=== PATIENT | male | born 1945 | race Caucasian/White ===

== ENCOUNTER 2021-11-20 08:06 | Emergency (ER) | payer MEDICARE, MEDICAID ==
[2021-11-20] MEDS ORDERED: Ketorolac 30 MG/ML SDV IM ONE (08:43)
[2021-11-20] MEDS ORDERED: rOPINIRole 0.5 MG Tab PO STA (11:38)
== END 2021-11-20 13:13 | disposition home or self-care (01) ==
LOC: JP.ED 08:06
DX: G25.81 Restless legs syndrome (principal); I10 Essential (primary) hypertension; K21.9 Gastro-esophageal reflux disease without esophagitis; Z79.899 Other long term (current) drug therapy
CPT/HCPCS: 36415; 80053; 81001; 82550; 83605; 84443; 84484; 84550; 85025; 85379; 93971-26-LT; 93971-LT; 96372; 99283; 99284-25; A9270-GY; J1885

== ENCOUNTER 2021-11-21 10:25 | Emergency (ER) | payer MEDICARE, MEDICAID ==
[2021-11-21] MEDS ORDERED: fentaNYL 100 MCG/2 ML SDV IM ONE (11:06)
[2021-11-21] MEDS ORDERED: LORazepam 2 MG/ML SDV IM ONE (11:55)
[2021-11-21] MEDS ORDERED: Bupivacaine 0.25% 10 ML SDV ONE (14:39)
[2021-11-21] MEDS ORDERED: methylPREDNISolone Acetate 80 MG/ML SDV ONE (14:39)
== END 2021-11-21 15:28 | disposition home or self-care (01) ==
LOC: JP.ED 10:25
DX: M48.061 Spinal stenosis, lumbar region without neurogenic claudication (principal); I10 Essential (primary) hypertension; K21.9 Gastro-esophageal reflux disease without esophagitis; Z79.899 Other long term (current) drug therapy
CPT/HCPCS: 72131; 72131-26; 76000; 96372; 99282; 99284-25; J1040; J2060; J3010; J3490

== ENCOUNTER 2021-11-25 06:56 | Observation (INO) | payer MEDICARE, MEDICAID ==
[2021-11-25] MEDS ORDERED: Baclofen 10 MG Tab PO ONE (07:43)
[2021-11-25 10:26] LABS: CORONAVIRUS COVID-19 NAA NEGATIVE (NEGATIVE)
[2021-11-25] MEDS ORDERED: fentaNYL 100 MCG/2 ML SDV IVPUSH ONE (13:05)
[2021-11-25] MEDS ORDERED: Ibuprofen 600 MG Tab PO PRN (13:42)
[2021-11-25] MEDS ORDERED: LORazepam 2 MG/ML SDV IVPUSH PRN (13:42)
[2021-11-25] MEDS ORDERED: Magnesium Hydroxide 400 MG/5 ML Susp 30 ML Cup PO PRN (13:42)
[2021-11-25] MEDS ORDERED: Ondansetron 4 MG Tab.DIS PO PRN (13:42)
[2021-11-25] MEDS ORDERED: Ondansetron 4 MG/2 ML SDV IV PRN (13:42)
[2021-11-25] MEDS ORDERED: Dexamethasone 4 MG/ML SDV IVPUSH ONE (13:55)
[2021-11-25] MEDS: HYDROmorphone 1 MG/ML Syringe IVPUSH PRN ×2 (13:58→17:11)
[2021-11-25] MEDS: Sodium Chloride 0.9% 1,000 ML IV SCH ×2 (14:32→23:50)
[2021-11-25] MEDS: Baclofen 10 MG Tab PO SCH ×2 (14:35→21:04)
[2021-11-25] MEDS: Acetaminophen 325 MG Tab PO PRN (14:41)
[2021-11-25] MEDS: oxyCODONE 5 MG Tab PO PRN (19:40)
[2021-11-25] MEDS ORDERED: rOPINIRole 1 MG Tab PO SCH (21:00)
[2021-11-25] MEDS ORDERED: Non-Formulary Medication 1 Each (Gabapentin [Neurontin] 300 MG Cap) PO SCH (21:00)
[2021-11-25] MEDS ORDERED: Non-Formulary Medication 1 Each (Ropinirole [Requip] 1 MG Tablet) PO SCH (21:00)
[2021-11-25] MEDS: Gabapentin 300 MG Cap PO SCH (21:04)
[2021-11-25] MEDS: Dexamethasone 4 MG/ML SDV IVPUSH SCH (21:04)
[2021-11-26] MEDS ORDERED: Pantoprazole 40 MG Tab.CR PO SCH (07:30)
[2021-11-26] MEDS: oxyCODONE 5 MG Tab PO PRN (07:36)
[2021-11-26] MEDS: Acetaminophen 325 MG Tab PO PRN (07:36)
[2021-11-26] MEDS ORDERED: Non-Formulary Medication 1 Each (Lisinopril [Lisinopril] 10 MG Tablet) PO SCH (09:00)
[2021-11-26] MEDS ORDERED: Non-Formulary Medication 1 Each (Omeprazole [Omeprazole] 20 MG Cap.Cr) PO SCH (09:00)
[2021-11-26] MEDS ORDERED: Lisinopril 20 MG Tab PO SCH (09:00)
[2021-11-26] MEDS: Baclofen 10 MG Tab PO SCH (10:07)
[2021-11-26] MEDS: Gabapentin 300 MG Cap PO SCH (10:07)
[2021-11-26] MEDS: Sodium Chloride 0.9% 1,000 ML IV SCH (10:10)
[2021-11-26] MEDS: Dexamethasone 4 MG/ML SDV IVPUSH SCH (10:11)
== END 2021-11-26 11:31 ==
LOC: JP.ED 06:56 → JP.MS 11:56
PROVIDERS: ADMIT Internal Medicine; ATTEND Internal Medicine
DX: M48.061 Spinal stenosis, lumbar region without neurogenic claudication (principal); M62.479 Contracture of muscle, unspecified ankle and foot; M62.838 Other muscle spasm; M54.16 Radiculopathy, lumbar region; I10 Essential (primary) hypertension; K21.9 Gastro-esophageal reflux disease without esophagitis; Z79.899 Other long term (current) drug therapy; Z20.822 Contact with and (suspected) exposure to COVID-19; Z85.46 Personal history of malignant neoplasm of prostate
CPT/HCPCS: 0241U; 36415; 70450; 72125; 80048; 80053; 82550; 82607; 82746; 83735; 85651; 86140; 96374; 96375; 96376; 99284; 99285-25; A9270-GY; G0378; J1100; J1170; J3010; J7030

== ENCOUNTER 2022-03-10 18:48 | Emergency (ER) | payer MEDICARE, MEDICAID ==
[2022-03-10 19:34] LABS: ESTIMATED GFR 92 mL/min (>60)
[2022-03-10] MEDS ORDERED: cefTRIAXone 1 GM in Sodium Chloride 0.9% 50 ML IV ONE (20:06)
== END 2022-03-10 21:35 ==
LOC: JP.ED 18:48
DX: N39.0 Urinary tract infection, site not specified (principal); Z93.59 Other cystostomy status; Z88.7 Allergy status to serum and vaccine; Z79.899 Other long term (current) drug therapy
CPT/HCPCS: 36415; 80053; 81001; 83605; 85025; 87086; 87088; 87186; 96365; 99285; J0696; 99282

== ENCOUNTER 2022-03-25 16:38 | Emergency (ER) | payer MEDICARE, MEDICAID ==
[2022-03-25] MEDS ORDERED: cefTRIAXone 1 GM, Lidocaine 1% 2.1 ML IM ONE ×2 (18:17)
== END 2022-03-25 19:28 | disposition home or self-care (01) ==
LOC: JP.ED 16:38
DX: N39.0 Urinary tract infection, site not specified (principal); C79.9 Secondary malignant neoplasm of unspecified site; E78.00 Pure hypercholesterolemia, unspecified; I10 Essential (primary) hypertension; K21.9 Gastro-esophageal reflux disease without esophagitis; Z88.7 Allergy status to serum and vaccine; Z79.899 Other long term (current) drug therapy; Z87.891 Personal history of nicotine dependence; Z93.59 Other cystostomy status; Z85.46 Personal history of malignant neoplasm of prostate; Z20.822 Contact with and (suspected) exposure to COVID-19
CPT/HCPCS: 36415; 70450; 71046; 80048; 81001; 84145; 85025; 86140; 87086; 96372; 99284; J0696; U0002; 87088

== ENCOUNTER 2022-04-06 18:48 | Emergency (ER) | payer MEDICARE, MEDICAID ==
[2022-04-06] MEDS ORDERED: Sodium Chloride 0.9% 1,000 ML IV SCH (19:45)
[2022-04-06] MEDS ORDERED: Sodium Chloride 0.9% 50 ML IV SCH (20:00)
[2022-04-06] MEDS ORDERED: Iopamidol 755 Mg/ML 100 ML Bottle IV SCH (20:00)
[2022-04-06 20:23] LABS: ESTIMATED GFR 89 mL/min (>60); TROPONIN I HIGH SENSITIVITY 24.6 pg/mL (<=60.3)
== END 2022-04-07 01:15 ==
LOC: JP.ED 18:48
DX: R56.1 Post traumatic seizures (principal); I10 Essential (primary) hypertension; Z88.7 Allergy status to serum and vaccine; Z79.899 Other long term (current) drug therapy; Z20.822 Contact with and (suspected) exposure to COVID-19
CPT/HCPCS: 36415; 70450; 70496; 70498; 80053; 81001; 82140; 83605; 84145; 84484; 85025; 86140; 93005; 99285; J3490; Q9967; U0002; 82565; J3370; J7050

== ENCOUNTER 2022-07-04 12:46 | Inpatient (IN) | payer MEDICARE, MEDICAID ==
[2022-07-04] MEDS ORDERED: Magnesium Hydroxide 400 MG/5 ML Susp 30 ML Cup PO PRN (18:14)
[2022-07-04] MEDS ORDERED: Ondansetron 4 MG/2 ML SDV IV PRN (18:14)
[2022-07-04] MEDS ORDERED: Ondansetron 4 MG Tab.DIS PO PRN (18:14)
[2022-07-04] MEDS ORDERED: Sodium Chloride 0.9% 1,000 ML IV SCH (18:14)
[2022-07-04] MEDS ORDERED: Acetaminophen 325 MG Tab PO PRN (18:14)
[2022-07-04] MEDS: Meropenem 1 GM in Sodium Chloride 0.9% 100 ML IV SCH (19:20)
[2022-07-04] MEDS: Carvedilol 3.125 MG Tab PO SCH (20:37)
[2022-07-04] MEDS: rOPINIRole 0.5 MG Tab PO SCH (20:37)
[2022-07-04] MEDS: Melatonin 3 MG Tab PO SCH (20:37)
[2022-07-04] MEDS: Baclofen 10 MG Tab PO SCH (20:37)
[2022-07-04] MEDS: ClonazePAM 1 MG Tab PO SCH (20:38)
[2022-07-04] MEDS: Magnesium Oxide 400 MG Tab PO SCH (20:46)
[2022-07-04] MEDS ORDERED: LACOSAMIDE 100 MG PO SCH (21:00)
[2022-07-05] MEDS: Meropenem 1 GM in Sodium Chloride 0.9% 100 ML IV SCH ×3 (01:53→17:30)
[2022-07-05] MEDS: Potassium Chloride 20 MEQ Tab.ER PO SCH (08:43)
[2022-07-05] MEDS: Citalopram 20 MG Tab PO SCH (08:43)
[2022-07-05] MEDS: Baclofen 10 MG Tab PO SCH ×3 (08:43→20:40)
[2022-07-05] MEDS: Pantoprazole 40 MG Tab.CR PO SCH (08:43)
[2022-07-05] MEDS: Calcium Carbonate 500 MG Tab.Chew PO SCH (08:44)
[2022-07-05] MEDS: rOPINIRole 0.5 MG Tab PO SCH ×2 (08:44→20:41)
[2022-07-05] MEDS: predniSONE 20 MG Tab PO SCH (08:44)
[2022-07-05] MEDS: Lisinopril 20 MG Tab PO SCH (08:44)
[2022-07-05] MEDS: Famotidine 20 MG Tab PO SCH (08:44)
[2022-07-05] MEDS: Carvedilol 3.125 MG Tab PO SCH ×2 (08:45→20:41)
[2022-07-05] MEDS: ClonazePAM 1 MG Tab PO SCH ×3 (08:46→20:46)
[2022-07-05] MEDS: Calcium Carbonate/Vitamin D3 1500 MG-400 Units Tab PO SCH (08:46)
[2022-07-05] MEDS: Melatonin 3 MG Tab PO SCH (20:40)
[2022-07-05] MEDS: Magnesium Oxide 400 MG Tab PO SCH (20:41)
[2022-07-06] MEDS: Meropenem 1 GM in Sodium Chloride 0.9% 100 ML IV SCH ×3 (02:44→18:03)
[2022-07-06] MEDS: Baclofen 10 MG Tab PO SCH ×3 (08:07→20:47)
[2022-07-06] MEDS: Lisinopril 20 MG Tab PO SCH (08:07)
[2022-07-06] MEDS: Famotidine 20 MG Tab PO SCH (08:07)
[2022-07-06] MEDS: Pantoprazole 40 MG Tab.CR PO SCH (08:07)
[2022-07-06] MEDS: Calcium Carbonate/Vitamin D3 1500 MG-400 Units Tab PO SCH (08:07)
[2022-07-06] MEDS: Citalopram 20 MG Tab PO SCH (08:07)
[2022-07-06] MEDS: Potassium Chloride 20 MEQ Tab.ER PO SCH (08:07)
[2022-07-06] MEDS: predniSONE 20 MG Tab PO SCH (08:08)
[2022-07-06] MEDS: Calcium Carbonate 500 MG Tab.Chew PO SCH (08:08)
[2022-07-06] MEDS: Carvedilol 3.125 MG Tab PO SCH ×2 (08:08→20:48)
[2022-07-06] MEDS: rOPINIRole 0.5 MG Tab PO SCH ×2 (08:09→20:48)
[2022-07-06] MEDS: ClonazePAM 1 MG Tab PO SCH ×3 (08:13→20:46)
[2022-07-06] MEDS: LACOSAMIDE 100 MG PO SCH ×2 (11:38→20:51)
[2022-07-06] MEDS: ALPHA LIPOIC ACID 600 MG PO SCH ×3 (13:28→20:59)
[2022-07-06] MEDS: Melatonin 3 MG Tab PO SCH (20:46)
[2022-07-06] MEDS: Magnesium Oxide 400 MG Tab PO SCH (20:48)
[2022-07-07] MEDS: Meropenem 1 GM in Sodium Chloride 0.9% 100 ML IV SCH ×3 (02:28→17:40)
[2022-07-07] MEDS: rOPINIRole 0.5 MG Tab PO SCH ×2 (08:48→21:16)
[2022-07-07] MEDS: Pantoprazole 40 MG Tab.CR PO SCH (08:49)
[2022-07-07] MEDS: Baclofen 10 MG Tab PO SCH ×3 (08:49→21:16)
[2022-07-07] MEDS: Carvedilol 3.125 MG Tab PO SCH ×2 (08:49→21:15)
[2022-07-07] MEDS: Famotidine 20 MG Tab PO SCH (08:49)
[2022-07-07] MEDS: Calcium Carbonate 500 MG Tab.Chew PO SCH (08:49)
[2022-07-07] MEDS: Lisinopril 20 MG Tab PO SCH (08:50)
[2022-07-07] MEDS: Citalopram 20 MG Tab PO SCH (08:50)
[2022-07-07] MEDS: predniSONE 20 MG Tab PO SCH (08:50)
[2022-07-07] MEDS: Calcium Carbonate/Vitamin D3 1500 MG-400 Units Tab PO SCH (08:50)
[2022-07-07] MEDS: Potassium Chloride 20 MEQ Tab.ER PO SCH (08:50)
[2022-07-07] MEDS: LACOSAMIDE 100 MG PO SCH ×2 (08:51→21:14)
[2022-07-07] MEDS: ALPHA LIPOIC ACID 600 MG PO SCH ×2 (08:53→21:01)
[2022-07-07] MEDS: ClonazePAM 1 MG Tab PO SCH ×3 (09:00→21:21)
[2022-07-07] MEDS ORDERED: Divalproex Sodium Delayed-Release 125 MG Cap.Sprink PO ONE (10:00)
[2022-07-07] MEDS: Divalproex Sodium Delayed-Release 125 MG Cap.Sprink PO SCH (17:17)
[2022-07-07] MEDS: Melatonin 3 MG Tab PO SCH (21:16)
[2022-07-07] MEDS: Magnesium Oxide 400 MG Tab PO SCH (21:17)
[2022-07-08] MEDS: Meropenem 1 GM in Sodium Chloride 0.9% 100 ML IV SCH ×3 (02:39→18:28)
[2022-07-08] MEDS: Divalproex Sodium Delayed-Release 125 MG Cap.Sprink PO SCH ×4 (07:27→17:16)
[2022-07-08] MEDS: Pantoprazole 40 MG Tab.CR PO SCH (07:27)
[2022-07-08] MEDS: Calcium Carbonate 500 MG Tab.Chew PO SCH (08:54)
[2022-07-08] MEDS: rOPINIRole 0.5 MG Tab PO SCH ×2 (08:54→20:37)
[2022-07-08] MEDS: Baclofen 10 MG Tab PO SCH ×3 (08:55→20:35)
[2022-07-08] MEDS: Potassium Chloride 20 MEQ Tab.ER PO SCH (08:55)
[2022-07-08] MEDS: Citalopram 20 MG Tab PO SCH (08:55)
[2022-07-08] MEDS: Carvedilol 3.125 MG Tab PO SCH ×2 (08:56→20:41)
[2022-07-08] MEDS: Famotidine 20 MG Tab PO SCH (08:57)
[2022-07-08] MEDS: predniSONE 10 MG Tab PO SCH (08:57)
[2022-07-08] MEDS: LACOSAMIDE 100 MG PO SCH ×2 (08:57→20:35)
[2022-07-08] MEDS: Lisinopril 20 MG Tab PO SCH (08:57)
[2022-07-08] MEDS: Calcium Carbonate/Vitamin D3 1500 MG-400 Units Tab PO SCH (08:57)
[2022-07-08] MEDS: ALPHA LIPOIC ACID 600 MG PO SCH ×2 (08:58→20:38)
[2022-07-08] MEDS ORDERED: predniSONE 20 MG Tab PO SCH (09:00)
[2022-07-08] MEDS: ClonazePAM 1 MG Tab PO SCH ×2 (09:07→14:14)
[2022-07-08] MEDS: Potassium Chloride 20 MEQ Tab.ER PO ONE ×2 (16:58→17:15)
[2022-07-08] MEDS: Magnesium Oxide 400 MG Tab PO SCH (20:36)
[2022-07-08] MEDS: Melatonin 3 MG Tab PO SCH (20:36)
[2022-07-08] MEDS ORDERED: Bisacodyl 10 MG Supp RECTAL PRN (21:37)
[2022-07-09] MEDS: ClonazePAM 1 MG Tab PO SCH ×4 (01:21→21:46)
[2022-07-09] MEDS: Meropenem 1 GM in Sodium Chloride 0.9% 100 ML IV SCH ×3 (02:30→17:33)
[2022-07-09] MEDS: Pantoprazole 40 MG Tab.CR PO SCH (08:01)
[2022-07-09] MEDS: Divalproex Sodium Delayed-Release 125 MG Cap.Sprink PO SCH ×2 (08:02→17:43)
[2022-07-09] MEDS: Calcium Carbonate 500 MG Tab.Chew PO SCH (08:03)
[2022-07-09] MEDS: Calcium Carbonate/Vitamin D3 1500 MG-400 Units Tab PO SCH (08:03)
[2022-07-09] MEDS: Citalopram 20 MG Tab PO SCH (08:04)
[2022-07-09] MEDS: Carvedilol 3.125 MG Tab PO SCH ×2 (08:04→21:47)
[2022-07-09] MEDS: Baclofen 10 MG Tab PO SCH ×3 (08:06→21:46)
[2022-07-09] MEDS: Potassium Chloride 20 MEQ Tab.ER PO SCH (08:06)
[2022-07-09] MEDS: Famotidine 20 MG Tab PO SCH (08:06)
[2022-07-09] MEDS: LACOSAMIDE 100 MG PO SCH ×2 (08:07→21:47)
[2022-07-09] MEDS: Lisinopril 20 MG Tab PO SCH (08:07)
[2022-07-09] MEDS: predniSONE 10 MG Tab PO SCH (08:07)
[2022-07-09] MEDS: rOPINIRole 0.5 MG Tab PO SCH ×2 (08:08→21:47)
[2022-07-09] MEDS: ALPHA LIPOIC ACID 600 MG PO SCH ×2 (08:19→21:41)
[2022-07-09 13:23] LABS: ESTIMATED GFR 78 mL/min (>60)
[2022-07-09] MEDS ORDERED: Sodium Chloride 0.9% 10 ML Syringe FLUSH PRN (14:29)
[2022-07-09] MEDS: Iopamidol 612 MG/ML 100 ML Bottle IV PRN (15:11)
[2022-07-09] MEDS: Melatonin 3 MG Tab PO SCH (21:46)
[2022-07-10] MEDS: Magnesium Oxide 400 MG Tab PO SCH ×2 (01:31→22:37)
[2022-07-10] MEDS: Meropenem 1 GM in Sodium Chloride 0.9% 100 ML IV SCH ×2 (01:31→09:40)
[2022-07-10] MEDS: LACOSAMIDE 100 MG PO SCH ×2 (08:14→22:38)
[2022-07-10] MEDS: Pantoprazole 40 MG Tab.CR PO SCH (08:14)
[2022-07-10] MEDS: ClonazePAM 1 MG Tab PO SCH ×3 (08:14→22:37)
[2022-07-10] MEDS: ALPHA LIPOIC ACID 600 MG PO SCH ×2 (08:17→22:44)
[2022-07-10] MEDS: Famotidine 20 MG Tab PO SCH (08:28)
[2022-07-10] MEDS: Calcium Carbonate 500 MG Tab.Chew PO SCH (08:29)
[2022-07-10] MEDS: predniSONE 10 MG Tab PO SCH (08:29)
[2022-07-10] MEDS: Citalopram 20 MG Tab PO SCH (08:29)
[2022-07-10] MEDS: Lisinopril 20 MG Tab PO SCH (08:30)
[2022-07-10] MEDS: Potassium Chloride 20 MEQ Tab.ER PO SCH (08:31)
[2022-07-10] MEDS: Baclofen 10 MG Tab PO SCH ×3 (08:31→22:37)
[2022-07-10] MEDS: Divalproex Sodium Delayed-Release 125 MG Cap.Sprink PO SCH (08:31)
[2022-07-10] MEDS: Calcium Carbonate/Vitamin D3 1500 MG-400 Units Tab PO SCH (08:32)
[2022-07-10] MEDS: rOPINIRole 0.5 MG Tab PO SCH ×2 (08:34→22:38)
[2022-07-10] MEDS: Carvedilol 3.125 MG Tab PO SCH ×2 (08:34→22:36)
[2022-07-10] MEDS ORDERED: Sodium Chloride 0.9% 75 ML IV SCH (08:45)
[2022-07-10] MEDS ORDERED: Iopamidol 612 MG/ML 100 ML Bottle IV SCH (08:45)
[2022-07-10] MEDS: Sodium Chloride 0.9% 10 ML Syringe FLUSH ONE ×2 (09:39→10:27)
[2022-07-10] MEDS: Iopamidol 612 MG/ML 100 ML Bottle IV PRN (10:27)
[2022-07-10] MEDS ORDERED: Sodium Chloride 0.9% 1,000 ML IV SCH (22:00)
[2022-07-10] MEDS: Melatonin 3 MG Tab PO SCH (22:37)
[2022-07-11] MEDS ORDERED: predniSONE 10 MG Tab PO SCH (09:00)
[2022-07-11] MEDS: ClonazePAM 1 MG Tab PO SCH ×3 (09:03→13:38)
[2022-07-11] MEDS: Calcium Carbonate/Vitamin D3 1500 MG-400 Units Tab PO SCH ×2 (09:04→09:22)
[2022-07-11] MEDS: LACOSAMIDE 100 MG PO SCH ×2 (09:04→09:23)
[2022-07-11] MEDS: Baclofen 10 MG Tab PO SCH ×3 (09:04→13:38)
[2022-07-11] MEDS: Pantoprazole 40 MG Tab.CR PO SCH ×2 (09:05→09:22)
[2022-07-11] MEDS: ALPHA LIPOIC ACID 600 MG PO SCH ×2 (09:05→09:22)
[2022-07-11] MEDS: Potassium Chloride 20 MEQ Tab.ER PO SCH ×2 (09:06→09:23)
[2022-07-11] MEDS: Citalopram 20 MG Tab PO SCH ×2 (09:06→09:22)
[2022-07-11] MEDS: rOPINIRole 0.5 MG Tab PO SCH ×2 (09:07→09:24)
[2022-07-11] MEDS: Famotidine 20 MG Tab PO SCH ×2 (09:07→09:23)
[2022-07-11] MEDS: Carvedilol 3.125 MG Tab PO SCH ×2 (09:08→09:22)
[2022-07-11] MEDS: Calcium Carbonate 500 MG Tab.Chew PO SCH ×2 (09:09→09:24)
[2022-07-11] MEDS: Lisinopril 20 MG Tab PO SCH ×2 (09:09→09:23)
[2022-07-11] MEDS: predniSONE 20 MG Tab PO SCH ×2 (09:09→09:23)
== END 2022-07-11 14:14 | DRG 699 ==
LOC: JP.ED 12:46 → JP.MS 17:13
PROVIDERS: ADMIT Internal Medicine; ATTEND Hospitalist
DX: T83.510A Infection and inflammatory reaction due to cystostomy catheter, initial encounter (principal); G25.82 Stiff-man syndrome; R53.1 Weakness; N39.0 Urinary tract infection, site not specified; Z93.6 Other artificial openings of urinary tract status; E78.00 Pure hypercholesterolemia, unspecified; I10 Essential (primary) hypertension; K21.9 Gastro-esophageal reflux disease without esophagitis; R33.9 Retention of urine, unspecified; M19.90 Unspecified osteoarthritis, unspecified site; G43.909 Migraine, unspecified, not intractable, without status migrainosus; L89.329 Pressure ulcer of left buttock, unspecified stage; Z20.822 Contact with and (suspected) exposure to COVID-19; L89.319 Pressure ulcer of right buttock, unspecified stage; Z96.619 Presence of unspecified artificial shoulder joint; Z79.899 Other long term (current) drug therapy; Z79.52 Long term (current) use of systemic steroids; Z88.7 Allergy status to serum and vaccine; Z85.46 Personal history of malignant neoplasm of prostate; B96.5 Pseudomonas (aeruginosa) (mallei) (pseudomallei) as the cause of diseases classified elsewhere
CPT/HCPCS: 36415; 70470; 70470-26; 70491; 70491-26; 80048; 80053; 81001; 83735; 84132; 84443; 85025; 85027; 86140; 97110-GP; 97140-GP; 97161-GP; 99285; A9270-GY; J2185; J3490; J7030; J7512; Q9967; U0002

== ENCOUNTER 2022-08-01 13:48 | Emergency (ER) | payer MEDICARE, MEDICAID | END 2022-08-01 16:44 | LOC: JP.ED 13:48 | DX: T83.510A Infection and inflammatory reaction due to cystostomy catheter, initial encounter (principal); S30.853A Superficial foreign body of scrotum and testes, initial encounter; I10 Essential (primary) hypertension; Z88.7 Allergy status to serum and vaccine; Z79.899 Other long term (current) drug therapy | CPT/HCPCS: 99283 ==

== ENCOUNTER 2022-08-02 12:15 | Emergency (ER) | payer MEDICARE, MEDICAID | END 2022-08-02 15:16 | LOC: JP.ED 12:15 | DX: M25.551 Pain in right hip (principal); N50.82 Scrotal pain; I10 Essential (primary) hypertension; Z88.7 Allergy status to serum and vaccine; Z79.899 Other long term (current) drug therapy | CPT/HCPCS: 73502-26-RT; 73502-RT; 99284 ==

== ENCOUNTER 2022-08-04 08:22 | Emergency (ER) | payer MEDICARE, MEDICAID ==
[2022-08-04] MEDS ORDERED: Sodium Chloride 0.9% 10 ML Syringe FLUSH PRN (08:30)
[2022-08-04] MEDS ORDERED: Dextrose 5%-Lactated Ringers 1,000 ML IV SCH (08:45)
== END 2022-08-04 10:05 ==
LOC: JP.ED 08:22
DX: T83.518A Infection and inflammatory reaction due to other urinary catheter, initial encounter (principal); N39.0 Urinary tract infection, site not specified; G25.82 Stiff-man syndrome; I10 Essential (primary) hypertension; K21.9 Gastro-esophageal reflux disease without esophagitis; G40.909 Epilepsy, unspecified, not intractable, without status epilepticus; Z88.7 Allergy status to serum and vaccine; Z85.46 Personal history of malignant neoplasm of prostate; Z87.891 Personal history of nicotine dependence; Z79.899 Other long term (current) drug therapy; Z20.822 Contact with and (suspected) exposure to COVID-19
CPT/HCPCS: 36415; 80048; 85025; 96360; 99283; J3490; J7121; U0002

== ENCOUNTER 2023-11-25 15:17 | Emergency (ER) | payer MEDICARE, MEDICAID ==
[2023-11-25 17:30] LABS: BASOPHILS ABSOLUTE AUTO 0.07 K/uL (0.00-0.10); BASOPHILS PERCENT AUTO 1.1 % (0.1-1.3); EOSINOPHILS ABSOLUTE AUTO 0.34 K/uL (0.00-0.40); EOSINOPHILS PERCENT AUTO 5.2 % (0.0-5.4); HEMATOCRIT 31.6 % (38.4-49.7); HEMOGLOBIN 9.9 g/dL (12.9-16.9); IMMATURE GRAN PERCENT AUTO 0.2 % (0.0-0.7); LYMPHOCYTES ABSOLUTE AUTO 2.06 K/uL (0.8-3.3); LYMPHOCYTES PERCENT AUTO 31.3 % (11.4-47.7); MEAN CORPUSCULAR HEMOGLOBIN 27.7 pg (31.6-35.5); MEAN CORPUSCULAR HGB CONC 31.3 g/dL (31.6-35.5); MEAN CORPUSCULAR VOLUME 88.3 fL (81.4-99.0); MONOCYTES ABSOLUTE AUTO 0.62 K/uL (0.20-0.90); MONOCYTES PERCENT AUTO 9.4 % (3.3-12.6); NEUTROPHILS ABSOLUTE AUTO 3.48 K/uL (1.0-7.6); NEUTROPHILS PERCENT AUTO 52.8 % (40.0-78.1); PLATELET COUNT,PLT 271 K/uL (130-375); RED BLOOD CELL COUNT 3.58 M/uL (4.14-5.76); WHITE BLOOD CELL COUNT,WBC 6.6 K/uL (3.2-11.0)
[2023-11-25 17:31] LABS: IMMATURE GRAN ABSOLUTE AUTO 0.01 K/uL (0.00-0.23)
[2023-11-25 17:53] LABS: A/G RATIO 1.4 (1.2-2.2); ALANINE AMINOTRANSFERASE,ALT 13 U/L (12-78); ALKALINE PHOSPHATASE 51 U/L (46-116); ANION GAP 5.9 mmol/L (5.0-14.0); ASPARTATE AMNIOTRANSFERASE,AST 27 U/L (15-37); BILIRUBIN TOTAL 0.1 mg/dL (0.2-1.0); BLOOD UREA NITROGEN,BUN 13 mg/dL (7-18); C-REACTIVE PROTEIN 1.62 mg/dL (<0.50); CALCIUM 8.5 mg/dL (8.5-10.1); CARBON DIOXIDE,CO2 30 mmol/L (21-32); CHLORIDE,CL 105 mmol/L (100-108); CREATININE 0.8 mg/dL (0.8-1.3); EST CRCL DRUG DOSING (CG) 69.78 mL/min; ESTIMATED GFR 91 mL/min (>60); GLUCOSE RANDOM 96 mg/dL (74-106); PROTEIN TOTAL,TP 6.9 g/dL (6.4-8.2); SODIUM,NA 141 mmol/L (140-148)
[2023-11-25] MEDS: Sodium Chloride 0.9% 100 ML IV SCH (17:56)
[2023-11-25] MEDS: Iopamidol 612 MG/ML 100 ML Bottle IV SCH (17:56)
== END 2023-11-25 19:59 | disposition home or self-care (01) ==
LOC: JP.ED 15:17
DX: T83.12 Displacement of other urinary devices and implants (principal); I10 Essential (primary) hypertension; K21.9 Gastro-esophageal reflux disease without esophagitis; Z79.899 Other long term (current) drug therapy; Z88.7 Allergy status to serum and vaccine
CPT/HCPCS: 36415; 74177; 80053; 83605; 84145; 85025; 86140; 87040; 99285; J3490; Q9967

== ENCOUNTER 2024-04-08 06:20 | Day surgery (SDC) | payer MEDICARE ==
[2024-04-08] MEDS: Sodium Chloride 0.9% 10 ML Syringe FLUSH PRN (07:33)
== END 2024-04-08 08:26 | disposition home or self-care (01) ==
LOC: JP.SDS 06:20
PROVIDERS: ATTEND Ophthalmology
DX: H25.11 Age-related nuclear cataract, right eye (principal); I10 Essential (primary) hypertension
CPT/HCPCS: 66984; J3490; V2632

== ENCOUNTER 2024-04-14 06:59 | Emergency (ER) | payer MEDICARE ==
[2024-04-14] MEDS: Ketorolac 30 MG/ML SDV IM ONE (07:45)
[2024-04-14 08:22] LABS: APPEARANCE,URINE CLEAR (CLEAR); BILIRUBIN,URINE NEGATIVE (NEGATIVE); COLOR,URINE YELLOW (YELLOW); GLUCOSE,URINE NEGATIVE (NEGATIVE); KETONES,URINE NEGATIVE (NEGATIVE); LEUKOCYTE ESTERASE,URINE MODERATE (NEGATIVE); NITRITE,URINE POSITIVE (NEGATIVE); OCCULT BLOOD,URINE LARGE (NEGATIVE); PH,URINE 6.5 (5.0-8.0); PROTEIN,URINE 100 mg/dL (NEGATIVE); UROBILINOGEN,URINE 0.2 EU/dL (0.2-1.0)
[2024-04-14 08:35] LABS: AMORPHOUS SEDIMENT,URINE NOT SEEN; BACTERIA,URINE MANY; EPITHELIAL CELLS,URINE NOT SEEN; MUCUS,URINE FEW; RBC,URINE 40-50 (0-5); WBC,URINE 50-75 (0-5)
== END 2024-04-14 08:59 | disposition home or self-care (01) ==
LOC: JP.ED 06:59
DX: N39.0 Urinary tract infection, site not specified (principal); T83.010A Breakdown (mechanical) of cystostomy catheter, initial encounter; Y73.2 Prosthetic and other implants, materials and accessory gastroenterology and urology devices associated with adverse incidents; I10 Essential (primary) hypertension; K21.9 Gastro-esophageal reflux disease without esophagitis; Z88.7 Allergy status to serum and vaccine; Z79.899 Other long term (current) drug therapy
CPT/HCPCS: 51700; 81001; 87086; 96372; 99284; J1885; 87088; 87186